=== PATIENT | male | born 1970 | race Caucasian/White ===

== ENCOUNTER → 2017-08-30 | Emergency (ER) | payer OTHER ==
[~2017-08-30] VITALS: Ht 170.2 cm; Wt 97.5 kg
[~2017-08-30] MED LIST: ACIDOPHILUS1 EAC1 PO; EXFORGE 5-320 M1 TAB; LIPIODOL10 ML; PRILOSEC OTC20 MG; PROTONIX40 MG PO; ZANTAC150 MG
== END | disposition home or self-care (01) ==
LOC: ER 06:35
DX: K52.9 Noninfective gastroenteritis and colitis, unspecified (principal); E86.0 Dehydration

== ENCOUNTER → 2018-08-07 | Outpatient (CLI) | payer OTHER | END | disposition home or self-care (01) | LOC: SONOGRAMA 11:14 | DX: R10.9 Unspecified abdominal pain (principal) ==